=== PATIENT | male | born 1950 | race Caucasian/White ===

== ENCOUNTER 2017-01-09 05:52 | Day surgery (SDC) | payer BC ==
[~2017-01-09] VITALS: Ht 187.3 cm; Wt 70.3 kg
[2017-01-09 10:33] VITALS: BP 152/83
== END 2017-01-09 09:15 | disposition home or self-care (01) | DRG 812 ==
LOC: ENDO 05:52 → ORM 07:30 → ENDO 07:30 → ORM 08:45 → ENDO 09:15
PROVIDERS: ATTEND Surgery
PROC: 0DJ08ZZ Inspection of Upper Intestinal Tract, Via Natural or Artificial Opening Endoscopic (ICD-10-PCS; principal; 2017-01-09)
PROC: 0DJD8ZZ Inspection of Lower Intestinal Tract, Via Natural or Artificial Opening Endoscopic (ICD-10-PCS; 2017-01-09)
DX: D64.9 Anemia, unspecified (principal)

== ENCOUNTER 2017-02-06 06:23 | Day surgery (SDC) | payer BC ==
[~2017-02-06] VITALS: Ht 188 cm; Wt 68.0 kg
[2017-02-06] MEDS ORDERED: PERCOCET 5/325M1 TAB PO (09:30)
[2017-02-06 10:13] VITALS: BP 141/75
== END 2017-02-06 10:48 | disposition home or self-care (01) | DRG 580 ==
LOC: ORM 06:23
PROVIDERS: ATTEND Surgery
PROC: 0KB50ZZ Excision of Right Shoulder Muscle, Open Approach (ICD-10-PCS; principal; 2017-02-06)
DX: C44.612 Basal cell carcinoma of skin of right upper limb, including shoulder (principal); C79.89 Secondary malignant neoplasm of other specified sites; D64.9 Anemia, unspecified

== ENCOUNTER 2017-02-27 06:12 | Day surgery (SDC) | payer BC ==
[~2017-02-27] VITALS: Ht 188 cm; Wt 68.0 kg
[~2017-02-27 06:12] MED LIST: PERCOCET 5/325M1 TAB PO
[2017-02-27] MEDS ORDERED: DILAUDID2 MG PO (09:38)
[2017-02-27 13:26] VITALS: BP 146/81
== END 2017-02-27 10:12 | disposition home or self-care (01) | DRG 578 ==
LOC: ORM 06:12
PROVIDERS: ATTEND Surgery
PROC: 0HRBX74 Replacement of Right Upper Arm Skin with Autologous Tissue Substitute, Partial Thickness, External Approach (ICD-10-PCS; principal; 2017-02-27)
PROC: 0KB50ZZ Excision of Right Shoulder Muscle, Open Approach (ICD-10-PCS; 2017-02-27)
PROC: 0HBHXZZ Excision of Right Upper Leg Skin, External Approach (ICD-10-PCS; 2017-02-27)
DX: C44.612 Basal cell carcinoma of skin of right upper limb, including shoulder (principal)
CPT/HCPCS: A6207; J2710

== ENCOUNTER 2022-04-30 09:47 | Emergency (ER) | payer MEDICARE ==
[~2022-04-30] VITALS: Ht 188 cm; Wt 60.0 kg
[~2022-04-30 09:47] MED LIST changes: +DILAUDID2 MG PO
[2022-04-30 10:09] VITALS: BP 129/73
[2022-04-30 10:15] VITALS: BP 126/83
[2022-04-30 10:27] LABS: BASO% 0.9 % (0-3); EOS% 0.4 % (0-8); IMMATURE GRANULOCYTES 0.3 % (0.0-5.0); LYMPH% 13.4 % (15-41); MEAN CORPUSCULAR HGB 26.8 pG CALC (26.0-32.0); MEAN CORPUSCULAR HGB CONC 32.5 g/dL CAL (32.0-36.0); MONO% 8.4 % (2-13); NEUT# 8.53 thou/uL (1.82-7.42); NEUT% 76.6 % (42-76); RED BLOOD COUNT 6.86 mill/uL (4.70-6.10); RED CELL DISTRI WIDTH 15.7 % (11.5-15.5)
[2022-04-30 10:28] LABS: HEMATOCRIT 56.6 % (39.0-50.0); HEMOGLOBIN 18.4 g/dl (14.0-18.0); MEAN CELL VOLUME 82.5 fL CALC (80.0-100.0)
[2022-04-30 10:30] VITALS: BP 120/82
[2022-04-30 10:38] LABS: ALBUMIN 4.4 g/dL (3.2-5.0); ALKALINE PHOSPHATASE 272 u/l (38-126); ANION GAP 19 (6-22 (CALC)); BILIRUBIN, TOTAL 0.7 mg/dL (0.2-1.3); BUN 17 mg/dL (8-23); BUN/CREATININE RATIO 20 (12-20 (CALC)); CARBON DIOXIDE 21 mmol/l (22-30); CHLORIDE 101 mmol/l (95-108); CREATININE 0.9 mg/dL (0.7-1.3); GFR FOR AFR.AMER. > 60 ML/MIN (>=60 (CALC)); GFR OTHER RACES > 60 ML/MIN (>=60 (CALC)); POTASSIUM 4.3 mmol/l (3.5-5.1); SGOT/AST 45 u/l (19-48); SODIUM 136 mmol/l (137-146); TOTAL PROTEIN 9.1 g/dL (6.3-8.2)
[2022-04-30 10:45] VITALS: BP 118/77
[2022-04-30 11:00] VITALS: BP 130/78
[2022-04-30 21:03] VITALS: BP 130/78
== END 2022-04-30 21:04 | disposition short-term general hospital (02) ==
LOC: ED 09:47
PROVIDERS: Family Medicine
DX: R91.8 Other nonspecific abnormal finding of lung field (principal); I10 Essential (primary) hypertension; Z20.822 Contact with and (suspected) exposure to COVID-19; R05.9 Cough, unspecified; R06.02 Shortness of breath
CPT/HCPCS: Q9967